=== PATIENT | male | born 1955 | race Caucasian/White ===

== ENCOUNTER 2021-06-02 17:35 | Emergency (ER) | payer OTHER ==
[~2021-06-02] VITALS: Ht 188 cm; Wt 149.7 kg
[~2021-06-02 17:35] MED LIST: AZO CRANBERRY1 EAC1 PO; COZAAR100 MG PO; DEPO-TESTO100 MG/1 M IM; DILTIAZEM HCL120 MG PO; ELIQUIS5 MG PO; FISH OIL 1,0001 EAC5 PO; FLONASE ALLERG9.9 ML NS; GINKGO BILOBA40 MG PO; I-CAPS WITH LU1 EACH PO; LIVER COMPLEX1 EACH PO; METHOCARBAMOL750 MG PO; MILK THISTLE200 M1 PO; MULTI VITAMIN1 EACH PO; NORCO 10-325 T1 EACH PO; VENTOLIN HFA18 GM INH; VITAMIN C WIT1000 M1 PO; VITAMIN D35000 UNI1 PO
== END 2021-06-02 20:15 | disposition home or self-care (01) ==
LOC: ED 17:35
DX: S30.1XXA Contusion of abdominal wall, initial encounter (principal); S20.212A Contusion of left front wall of thorax, initial encounter; W00.1XXA Fall from stairs and steps due to ice and snow, initial encounter; I10 Essential (primary) hypertension; J45.909 Unspecified asthma, uncomplicated; E78.5 Hyperlipidemia, unspecified; Z79.899 Other long term (current) drug therapy
CPT/HCPCS: 71260; 74177; 80048; 85025; 99284-25; Q9967

== ENCOUNTER 2023-04-29 11:48 | Day surgery (SDC) | payer MEDICARE, OTHER ==
[2023-04-20 11:32] VITALS: BP 164/112
[2023-04-20 11:53] VITALS: BP 164/112
[~2023-04-29] VITALS: Ht 188 cm; Wt 150.0 kg
[~2023-04-29 11:48] MED LIST changes: +HYDROCHLOROTH12.5 MG PO
[2023-04-29 12:05] VITALS: BP 135/96
[2023-04-29 14:56] VITALS: BP 140/96
--- NOTE | 2023-04-29 15:56 | NUR ---
04/29/23 1556 RaheelDayami Clinton 1340- PT ARRIVES TO PACU, AWAKE BUT DROWSY. DENIES ABD PAIN OR NAUSEA. PT C/O LOW BACK PAIN, PRESENT ON ADMISSION AND BEEN DEALING WITH FOR SEVERAL WEEKS. ALL MONITORS APPLIED. O2 AT 6L PER MASK, LR INFUSING TO RFA IV. NO SIGNS OF DISTRESS. 1348- PT REQUESTS TO REMOVE O2.SATS HAVE REMAINED 100%, MOVED TO ROOM AIR AT THIS TIME. 1358- PT REQUESTING TO SIT UP AND REPORTS HE NEEDS TO SIT ON THE SIDE OF THE BED. ASSISTED PT TO SIDE OF BED, TOLERATING WELL. NO DIZZINESS OR NAUSEA. 1405- PT DRINKING WATER, TOLERATING WELL. WILL CONTINUE TO MONITOR. 1ST LITER LR COMPLETED. PT REQUESTING SOMETHING FOR PAIN, NO FURTHER ORDERS AT THIS TIME. EDUCATED PT ON USING PILLOWS UNDER KNEES, WARM MOIST COMPACTS, AND TAKING MEDICATIONS HE NORMALLY USES FOR PAIN AT HOME. IF MEDICATIONS AT HOME ARE NOT HELPING, CONTACT PCP FOR FURTHER HELP WITH PAIN MANAGEMENT. 1415- PT READY TO GET DRESSED. CALLED FOR RIDE. ASSISTED PT WITH DRESSING DUE TO DECREASED ROM WITH BACK PAIN. PT TOLERATED WELL, TRANSFERRED WITHOUT DIFFICULTY TO WHEEL CHAIR. 1430- SALINE LOCK REMOVED, TIP INTACT, DRESSING APPLIED. PT VERBALIZED UNDERSTANDING OF INSTRUCTIONS. TAKEN TO FRIENDS VEHICLE VIA WHEEL CHAIR, ALERT AND ORIENTED, NO SIGNS OF DISTRESS WITH ALL BELONGINGS. TRANSFERRED WITH STANDBY ASSIST TO CAR.
--- NOTE | 2023-04-30 13:56 | OR ---
[facility] [address], [place] [address] Signed DATE OF OPERATION: 04/29/2023 SURGEON: Alistair Singh MD PREOPERATIVE DIAGNOSIS: Positive Cologuard test. POSTOPERATIVE DIAGNOSES: 1. Sigmoid diverticulosis. 2. Two small polyps, right colon. PROCEDURE: Total colonoscopy to cecum with cold morcellation polypectomy x1 and cold snare polypectomy x1. ANESTHESIA: Intravenous sedation propofol; Luis Twonsend CRNA. INDICATION: This 67-year-old white man is a patient of Dr. Ryan Piedra, underwent Cologuard testing which was positive. He has no symptoms of bleeding diarrhea or constipation. He does have family history of colon cancer in a maternal uncle. He last underwent colonoscopy [address] Derrick Castrejon, which was said to be negative. He has previously been on Eliquis, but has stopped for this procedure at this time. He understands the risk of bleeding, infection, and perforation related to colonoscopy to detect polyp based on Cologuard test and wishes to proceed. FINDINGS: The prep was quite good. Complete colonoscopy was undertaken of the cecum with full intubation of the cecum. There were scattered diverticula of the sigmoid. There were two small adenomatous appearing polyps of the right colon, one excised with cold morcellation technique, the other with cold snare technique. Good hemostasis was noted. PROCEDURE IN DETAIL: The patient was brought to the endoscopy suite and placed in lateral decubitus position, given intravenous sedation to the point of slurred speech and nystagmus. Digital rectal examination was normal. An Olympus video colonoscope was passed in the rectum and manipulated throughout the colon ultimately intubating the cecum itself. The ileocecal valve and appendiceal Electronically Signed By: ALISTAIR SINGH MD 04/30/23 1356 PATIENT NAME: NICOLE ARCE OPERATIVE REPORT DATE OF : 57 REPORT #: [id number] PHYSICIAN: ALISTAIR SINGH MD PCP: RYAN PIEDRA MD REPORT IS CONFIDENTIAL AND NOT TO BE RELEASED WITHOUT AUTHORIZATION [facility] [address], [place] [address] Signed orifice were normal. Scope was withdrawn in the mid ascending colon. A small polyp was noted. It was adenomatous in its appearance. It was excised with cold snare polypectomy technique. Another smaller polyp was noted additionally likely adenomatous. It was excised with cold snare technique. Further withdrawal of scope showed no other abnormality until the sigmoid where diverticula were noted. Retroflexed view of the rectum was normal. Scope was removed. The patient was taken to the recovery room in good condition. CONCLUDING DIAGNOSIS: Polyps x2 and diverticulosis. PLAN: Recommend repeat colonoscopy in three years, sooner if clinically indicated. He will return to the ongoing care of Dr. Piedra. MD IGOR Reaves/NICOLLE /[id number] cc: Ryan Piedra MD Copies: RYAN PIEDRA DMD ~ Electronically Signed By: ALISTAIR SINGH MD 04/30/23 1356 PATIENT NAME: YAZMINNICOLEBaljit HOUGH OPERATIVE REPORT DATE OF : 57 REPORT #: [id number] PHYSICIAN: ALISTAIR SINGH MD PCP: RYAN PIEDRA MD REPORT IS CONFIDENTIAL AND NOT TO BE RELEASED WITHOUT AUTHORIZATION
--- NOTE | 2023-05-07 17:09 | PATH ---
[facility] [address], [place] [address] Signed SPECIMEN(S): A ASCENDING/RIGHT COLON POLYP SPECIMEN(S): B ASCENDING/RIGHT COLON POLYP SPECIMEN SOURCE: A. ASCENDING/RIGHT COLON POLYP B. ASCENDING/RIGHT COLON POLYP CLINICAL HISTORY: Colonoscopy. Positive Cologuard FINAL PATHOLOGIC DIAGNOSIS: A. Colon, ascending/right, polyp, biopsy: - Tubular adenomas (2). B. Colon, ascending/right polyp, biopsy: - Benign colonic mucosa with prominent intramucosal lymphoid aggregate. - There is no evidence of neoplasia. COMMENT: A. There is no evidence of high grade dysplasia or malignancy. B. Sections of colonic tissue demonstrate a benign intramucosal lymphoid aggregate. Intramucosal lymphoid aggregates can sometimes appear as polyps endoscopically. They have no clinical significance. There is no evidence of dysplasia or malignancy. K MICROSCOPIC EXAMINATION: Histologic sections of all submitted blocks are examined by light microscopy. These findings, together with the gross examination, support the pathologic diagnosis. GROSS DESCRIPTION: A. The specimen, labeled and designated "Somis, ascending/right colon polyp," is received in formalin and consists of two butler soft tissue fragments, ranging from 0.4-0.5 cm. Entirely submitted in (A1). B. The specimen, labeled and designated "Pavan, ascending/right colon polyp," is received in formalin and consists of one butler soft tissue fragment, 0.4 cm. Entirely submitted in (B1). VB (under the direct supervision of a pathologist) The Gross Description was prepared using a voice recognition system. The report was reviewed for accuracy; however, sound-alike word errors, addition and/or PATIENT NAME: NICOLE ARCE PATHOLOGY DATE OF : 57 REPORT #: [id number] PHYSICIAN: LUC HUANG PCP: RYAN PIEDRA MD REPORT IS CONFIDENTIAL AND NOT TO BE RELEASED WITHOUT AUTHORIZATION [facility] [address], [place] [address] Signed deletions may occur. If there is any question about this report, please contact Client Services. ADDITIONAL NOTES: Immunohistochemical and/or in situ hybridization studies if performed in this case included appropriate positive controls that reacted as expected. This test was developed and its performance characteristics determined by [facility]. It has not been cleared or approved by the U.S. Food and Drug Administration. The FDA has determined that such clearance or approval is not necessary. This test is used for clinical purposes. It should not be regarded as investigational or for research. [facility] is certified under the Clinical Laboratory Improvement Amendments of 1988 (CLIA) as qualified to perform high complexity clinical laboratory testing. PERFORMING LABORATORY: Technical component was performed by [facility], [address] [place] [id number] (CLIA# [id number]). Professional interpretation was performed by [facility], [address] [place] [address] (CLIA#:[id number]). Diagnostician: Rylan Dial MD Pathologist Electronically Signed 05/07/2023 Copies: ~ PATIENT NAME: NICOLE ARCE PATHOLOGY DATE OF : 57 REPORT #: [id number] PHYSICIAN: LUC PATHOLOGY PCP: RYAN PIEDRA MD REPORT IS CONFIDENTIAL AND NOT TO BE RELEASED WITHOUT AUTHORIZATION
== END 2023-04-29 14:30 | disposition home or self-care (01) ==
LOC: OPS 11:48 → DS 11:48 → OPS 13:00
PROVIDERS: ATTEND Surgery
PROC: 0DBF8ZZ Excision of Right Large Intestine, Via Natural or Artificial Opening Endoscopic (ICD-10-PCS; 2023-04-29)
PROC: 0DBK8ZZ Excision of Ascending Colon, Via Natural or Artificial Opening Endoscopic (ICD-10-PCS; principal; 2023-04-29 13:00)
DX: D12.6 Benign neoplasm of colon, unspecified (principal); K57.30 Diverticulosis of large intestine without perforation or abscess without bleeding; I48.20 Chronic atrial fibrillation, unspecified; E66.01 Morbid (severe) obesity due to excess calories; Z90.09 Acquired absence of other part of head and neck; Z80.0 Family history of malignant neoplasm of digestive organs; Z90.49 Acquired absence of other specified parts of digestive tract; Z68.41 Body mass index [BMI] 40.0-44.9, adult
CPT/HCPCS: 00811; J2001; J2704; J7121